=== PATIENT | male | born 1950 | race Caucasian/White ===

== ENCOUNTER 2021-05-02 12:16 | Outpatient (CLI) | payer MEDICARE, OTHER | END 2021-05-02 12:17 | disposition home or self-care (01) | LOC: BICCT 12:16 | PROVIDERS: ATTEND Neurological Surgery | DX: M47.26 Other spondylosis with radiculopathy, lumbar region (principal); M48.061 Spinal stenosis, lumbar region without neurogenic claudication; I71.4 Abdominal aortic aneurysm, without rupture; Z98.1 Arthrodesis status | CPT/HCPCS: 72131 ==

== ENCOUNTER 2021-05-17 06:32 | Day surgery (SDC) | payer OTHER ==
[2021-05-04 15:05] VITALS: BMI 26.2
[2021-05-17] MEDS ORDERED: Fentanyl 250 MCG/5 ML VIAL ONE (06:42)
[2021-05-17] MEDS ORDERED: Thrombin 5000 UNITS/5 ML VIAL ONE (06:54)
[2021-05-17] MEDS ORDERED: EPINEPHrine 1 MG/ML AMP ONE (06:54)
[2021-05-17] MEDS ORDERED: Bupivacaine PF 0.5% 30 ML VIAL ONE (06:54)
[2021-05-17 07:28] LABS: #Basophils 0.1 thou/uL (0.0-0.2); #Eosinphils 0.3 thou/uL (0.0-0.7); #Lymphocytes 1.4 thou/uL (1.20-3.40); #Monocytes 0.6 thou/uL (0.11-0.59); #Neutrophils 4.6 thou/uL (1.40-6.50); %Basophils 0.9 % (0.0-1.0); %Lymphocytes 19.8 % (21.0-51.0); %Monocytes 8.8 % (0.0-10.0); %Neutrophils 66.5 % (42.0-75.0); Mean Corpuscular HGB CONC 33.4 g/dL (32.0-36.0); Mean Corpuscular Hemoglobin 31.7 pg (27.0-31.0); Mean Corpuscular Volume 95.1 fL (78.0-98.0); Mean Platelet Volume 7.3 fL (7.4-10.4); Platelet Count 307 thou/uL (130-400); RBC Distribution Width 12.6 % (11.5-14.5); Red Blood Cell (RBC) Count 5.04 mill/uL (4.70-6.10); White Blood Cell (WBC) Count 6.9 thou/uL (4.8-10.8)
[2021-05-17] MEDS ORDERED: Ondansetron PF 4 MG/2 ML Vial ONE (07:34)
[2021-05-17] MEDS ORDERED: Rocuronium Bromide 10 MG/ML (10ML VIAL) ONE (07:34)
[2021-05-17] MEDS ORDERED: Albuterol Sulfate HFA (OR ONLY) ONE (07:34)
[2021-05-17] MEDS ORDERED: Ketorolac Tromethamine 30 MG/ML VIAL ONE (07:34)
[2021-05-17] MEDS ORDERED: Lidocaine 1% PF 5 ML VIAL ONE (07:34)
[2021-05-17] MEDS ORDERED: Dexamethasone 20 MG/5 ML VIAL ONE (07:34)
[2021-05-17] MEDS ORDERED: ePHEDrine 50 MG/ML VIAL ONE (07:34)
[2021-05-17] MEDS ORDERED: PROPOFOL 200 MG/20 ML VIAL ONE (07:34)
[2021-05-17] MEDS ORDERED: Glycopyrrolate 0.2 MG/ML 5 ML SYRINGE ONE (07:34)
[2021-05-17 07:41] LABS: Anion Gap 12 mmol/L (10-20); BUN (Urea Nitrogen) 22 mg/dL (8.4-25.7); Calc. Creatinine Clearance 86 mL/min (70-130); Calcium 9.3 mg/dL (7.8-10.44); Carbon Dioxide 28 mmol/L (23-31); Chloride 99 mmol/L (98-107); Glucose 109 mg/dL (80-115); Potassium 3.5 mmol/L (3.5-5.1); Sodium 135 mmol/L (136-145)
[2021-05-17] MEDS ORDERED: Fentanyl 100 MCG/2 ML VIAL ONE (09:05)
[2021-05-17] MEDS ORDERED: Tamsulosin HCl 0.4 MG CAP ONE (09:23)
== END 2021-05-17 12:35 | disposition home or self-care (01) ==
LOC: SDC 06:32
PROVIDERS: ATTEND Neurological Surgery
PROC: 01NB0ZZ Release Lumbar Nerve, Open Approach (ICD-10-PCS; principal; 2021-05-17)
DX: M51.16 Intervertebral disc disorders with radiculopathy, lumbar region (principal); M48.061 Spinal stenosis, lumbar region without neurogenic claudication; M19.90 Unspecified osteoarthritis, unspecified site; Z79.899 Other long term (current) drug therapy; Z88.6 Allergy status to analgesic agent; Z98.1 Arthrodesis status
CPT/HCPCS: 36415; 76000; 80048; 85025; 93005; 93010; J0171; J0690; J1100; J1885; J2405; J2704; J3010; J3490; S0020

== ENCOUNTER 2022-02-05 08:19 | Outpatient (CLI) | payer OTHER | END 2022-02-05 08:20 | disposition home or self-care (01) | LOC: SCSMRI 08:19 | PROVIDERS: ATTEND Psychiatry & Neurology Neurology | DX: G44.309 Post-traumatic headache, unspecified, not intractable (principal) | CPT/HCPCS: 70551 ==